=== PATIENT | female | born 1980 | race Caucasian/White ===

== ENCOUNTER 2019-03-03 02:28 | Emergency (ER) | payer MEDICAID, OTHER ==
[~2019-03-03] VITALS: Ht 170.2 cm; Wt 76.2 kg
[2019-03-03] MEDS ORDERED: cefTRIAXone SOD 1,000 MG VL IM ONE (04:15)
[2019-03-03] MEDS ORDERED: DexAMETHasone SOD PHOS 10MG/1ML VIAL INJ IM ONE (04:15)
[2019-03-03 05:39] VITALS: BP 118/82
== END 2019-03-03 05:28 | disposition home or self-care (01) ==
LOC: ER 02:36
DX: J06.9 Acute upper respiratory infection, unspecified (principal); H65.93 Unspecified nonsuppurative otitis media, bilateral
CPT/HCPCS: 96372; 99283; J0696; J1100

== ENCOUNTER 2021-09-19 22:25 | Emergency (ER) | payer MEDICAID ==
[~2021-09-19] VITALS: Ht 170.2 cm; Wt 86.2 kg
[2021-09-19 22:25] VITALS: BP 98/62
== END 2021-09-20 00:33 | disposition left against medical advice (07) ==
LOC: ER 22:25
DX: F10.129 Alcohol abuse with intoxication, unspecified (principal); Y90.9 Presence of alcohol in blood, level not specified